=== PATIENT | male | born 1955 | race African-American/Black ===

== ENCOUNTER 2024-01-03 10:59 | Emergency (ER) | payer MEDICARE, OTHER ==
[~2024-01-03] VITALS: Ht 175.3 cm; Wt 87.3 kg
[2024-01-03 11:03] VITALS: TEMP 98.3
[2024-01-03] MEDS ORDERED: ACET-2247 PO (11:04)
[2024-01-03] MEDS ORDERED: IBUP-1554 PO (13:17)
[2024-01-03] MEDS ORDERED: METH-659 PO (13:17)
[2024-01-03] MEDS ORDERED: ACET-66 PO (13:17)
[2024-01-03] MEDS: ACETAMINOPHEN 500 MG TABLET PO ONE (13:48)
[2024-01-03] MEDS: METHOCARBAMOL 500 MG TABLET PO ONE (13:48)
[2024-01-03] MEDS: KETOROLAC TROMETHAMINE 60 MG/2 ML VIAL IM ONE (13:48)
[2024-01-03] MEDS ORDERED: LIDO700A15 TP (13:56)
[2024-01-03 14:22] VITALS: BP 149/86; PULSE 75; RESP 16; O2SAT 98
== END 2024-01-03 14:23 | disposition home or self-care (01) ==
LOC: EMS 10:59
DX: S39.012A Strain of muscle, fascia and tendon of lower back, initial encounter (principal); X58.XXXA Exposure to other specified factors, initial encounter; Y93.89 Activity, other specified; Y92.89 Other specified places as the place of occurrence of the external cause; Y99.8 Other external cause status
CPT/HCPCS: 99283; 72100; 96372; J1885

== ENCOUNTER 2024-01-20 00:20 | Emergency (ER) | payer MEDICARE, MEDICAID ==
[~2024-01-20] VITALS: Ht 175.3 cm; Wt 86.4 kg
[~2024-01-20 00:20] MED LIST: ACET-2247 PO; ACET-66 PO; IBUP-1554 PO; LIDO700A15 TP; METH-659 PO
[2024-01-20] MEDS: METHOCARBAMOL 500 MG TABLET PO ONE (02:09)
[2024-01-20] MEDS: KETOROLAC TROMETHAMINE 60 MG/2 ML VIAL IM ONE (02:09)
[2024-01-20] MEDS: HYDROCODONE/ACETAMINOPHEN 5-325 MG TABLET PO ONE (02:09)
[2024-01-20] MEDS: LIDOCAINE 5% TRANSDERMAL PATCH TD ONE (02:10)
[2024-01-20] MEDS ORDERED: HYDR-4062 PO (02:18)
[2024-01-20 02:39] VITALS: BP 124/76; PULSE 71; RESP 16; TEMP 98.3; O2SAT 100
== END 2024-01-20 02:50 | disposition home or self-care (01) ==
LOC: EMS 00:21
DX: S39.012A Strain of muscle, fascia and tendon of lower back, initial encounter (principal); X58.XXXA Exposure to other specified factors, initial encounter; Y93.89 Activity, other specified; Y92.89 Other specified places as the place of occurrence of the external cause; Y99.8 Other external cause status
CPT/HCPCS: 99284; 96372; J1885